=== PATIENT | female | born 1990 | race Caucasian/White ===

== ENCOUNTER 2024-03-07 06:55 | Inpatient (IN) | payer BC, SELFPAY ==
[2024-03-07] VITALS (43 sets, daily range): BP systolic 113–172; BP diastolic 55–99; PULSE 70–100; RESP 14–18; TEMP 36.1–37.2; O2SAT 86–100; BMI 45.3
[2024-03-07] MEDS: Lactated Ringers 1,000 ML 50 ML IV (07:25)
[2024-03-07] MEDS: LACTATED RINGERS 500 ML 999 ML IV (07:47)
[2024-03-07 07:50] LABS: Absolute Lymphocyte Count 3.24 X10^3/uL (0.83-4.51); Absolute Neutrophil Count 8.2 X10^3/uL (2.0-7.7); Basophil# 0.04 X10^3/uL; Basophil% 0.3 % (0-1); Eosinophil# 0.07 X10^3/uL; Eosinophils% 0.6 % (0-5); Hematocrit 39.2 % (37-47); Hemoglobin 12.6 g/dL (12.0-15.0); Lymphocyte # 3.24 X10^3/ul (0.83-4.51); Lymphocyte % 25.8 % (19-41); Mean Corp Hgb Conc 32.1 g/dL (32-36); Mean Corpuscular Volume 90.3 fL (81-99); Mean Platelet Vol. 9.6 fl (6.2-12.0); Monocyte# 0.86 X10^3/uL; Monocyte% 6.9 % (0-10); NRBC Flagged by Analyzer 0 % (0-5); Neutrophil # 8.23 X10^3/uL (2.7-7.7); Neutrophil % 65.5 % (47-70); Platelet Count 230 K/mm3 (150-450); RBC Distribution Width CV 13.6 % (11.6-14.6); Red Blood Count 4.34 M/mm3 (4.2-5.4); White Blood Count 12.6 K/mm3 (4.4-11.0)
--- NOTE | 2024-03-07 08:13 | PCM.HP.OB ---
HPI - General General Date of Admission: 03/07/24 HPI Narrative CHAU SHOCK, is a 33 F who presents for induction of labor at 39w2d for elective induction of labor. Maternal Data Information AVILA Calculator Estimated Delivery Date Method Current WG Current Estimate 03/12/24 Manual 39w 2d Final AVILA: 03/12/24 PFS PFS Medical History (Updated 03/07/24 @ 08:49 by Lucero Perez CNM) Gestational HTN depression Home Medications aspirin 81 mg capsule 81 mg PO DAILY HX of HTN 03/07/24 [History Last Taken 03/06/24] pren vit comb.1-iron cb-FA-DSS 90 mg-1 mg-50 mg tablet 1 tab PO DAILY 03/07/24 [History Last Taken 03/06/24] Allergy/AdvReac Type Severity Reaction Status Date / Time No Known Allergies Allergy Verified 03/07/24 07:25 Surgical History (Updated 03/07/24 @ 08:04 by Elizabet Villalobos) History of surgery Social History Smoking Status: Never smoker History Elective abortions Hx Para 1 Spontaneous abortions Hx # Term Pregnancies Ectopic pregnancies Hx # Pregnancies Multiple births # of living children NST FHR Rate Baby A Baseline: 140 Variability:: Moderate Accelerations:: 15 x 15 Decelerations:: None FHR Category:: Category I Uterine Activity:: None ROS Constitutional Constitutional: Reports systems reviewed and no addt'l complaints, except as documented; Denies headache(s) Eyes Eyes: Denies acute decrease in peripheral vision, blurry vision or change in vision ENT HEENT: Reports systems reviewed and no addt'l complaints, except as documented Cardiovascular Cardiovascular: Denies chest pain or dizziness Respiratory/Chest Respiratory/Chest: Denies cough, dyspnea, dyspnea on exertion, shortness of breath at rest or shortness of breath with exertion Gastrointestinal Gastrointestinal: Denies abdominal pain, diarrhea, nausea or vomiting Genitourinary Genitourinary: Denies abdominal discomfort Musculoskeletal Musculoskeletal: Denies limited range of motion Integumentary Integumentary: Reports systems reviewed and no addt'l complaints, except as documented Neurologic Neurologic: Reports systems reviewed and no addt'l complaints, except as documented Psychiatric Psychiatric: Reports systems reviewed and no addt'l complaints, except as documented Endocrine Endocrinology: Reports systems reviewed and no addt'l complaints, except as documented Hematologic/Lymphatic Hematologic/Lymphatic: Reports systems reviewed and no addt'l complaints, except as documented Allergic/Immunologic Allergic/Immunologic: Reports systems reviewed and no addt'l complaints, except as documented Vital Signs Vital Signs Vital Signs: 03/07/24 07:32 03/07/24 07:32 03/07/24 07:32 Temperature Temperature Source Temporal Pulse Rate 86 Respiratory Rate Blood Pressure 139/84 H BP Systolic 139 BP Diastolic 84 03/07/24 07:32 03/07/24 07:32 Temperature 98.4 F Temperature Source Pulse Rate Respiratory Rate 18 Blood Pressure BP Systolic BP Diastolic Weight Weight: 264 lb 4 oz Body Mass Index (BMI) 45.3 Physical Exam Const alert and oriented x3 General Appearance: cooperative Orientation / Consciousness: awake, oriented to person, oriented to place and oriented to time Exam Limitations: no limitations HEENT normocephalic Head and Scalp: normal to inspection, normocephalic and atraumatic Face and Sinus: normal facial exam Eyes General Eye: normal appearance of both eyes Neck full ROM Chest Chest: symmetrical chest wall rise Resp normal respiratory effort and normal air movement Auscultation: clear to auscultation bilaterally Cardio regular rate, regular rhythm, S1 normal heart sound, S2 normal heart sound, no murmurs, no rub, no gallops and no clicks GI normal to inspection, nondistended, normoactive bowel sounds and non-tender appearance of the vagina normal Bladder / Kidney Exam: no CVA tenderness Manual OB Exam: estimated gestational size appropriate, presentation cephalic, dilated 1cm, effaced 60, station -2 and other houser inserted into cervix without difficulty. 30ml NS instilled. Patient tolerated well. Back/Spine normal ROM Extremity normal to inspection and full ROM Skin no rashes or lesions noted Neuro oriented x3 and moves all extremities Sensorium / Orientation: awake, alert and oriented to person Motor Exam: clonus absent Deep Tendon Reflexes: Rt Patellar (L4): 2+ and Lt Patellar (L4): 2+ Labs Labs Labs: Blood Type Pending Antibody Screen Pending Hct 39.2 % (37-47) Hgb 12.6 g/dL (12.0-15.0) Syphilis Total Ab Pending HIV negative HBsAG negative HepC negative Rubella immune RPR negative O positive GBS negative GC/CT negative Assessment & Plan (1) Encounter for induction of labor: (2) Obesity affecting : (3) History of depression: (4) History of gestational hypertension: PLAN: Plan 1) Admit to labor and delivery 2) Routine labs 3) Epidural for pain management 4) Continuous EFM 5) Houser and Pitocin 6) collaborative physician and notified of patient status, above assessment and plan of care.
[2024-03-07] MEDS: Oxytocin 15 Units/NS 250ml 15 UNITS/250 ML IV.SOLN 2 UNITS IV (08:25)
[2024-03-07] MEDS: 0.9% Normal Saline Single 100 ML IV.SOLN. INTRA-UTER (08:45)
[2024-03-07 09:31] LABS: Syphilis Antibodies Non-reactive
[2024-03-07] MEDS: CHLORHEXIDINE GLUC 2% CLOTH 1 EACH TOWELETTE TOPICAL (10:31)
[2024-03-07] MEDS: fentaNYL-bupivacaine (epidural) 100 ML BAG EPIDURAL ×2 (11:07→15:39)
--- NOTE | 2024-03-07 11:46 | PN.OBGYN_ITS ---
Subjective Subjective Resting in bed comfortable with epidural. Objective Data Objective Data Vital Signs: Vital Signs Temp Pulse Resp BP Pulse Ox 98.8 F 84 16 128/77 H 100 03/07/24 11:21 03/07/24 11:44 03/07/24 11:24 03/07/24 11:44 03/07/24 11:41 Weight: 264 lb 4 oz Body Mass Index (BMI) 45.3 Intake & Output: Intake and Output for Last 24 Hours 03/05/24 03/06/24 03/07/24 23:59 23:59 23:59 Intake Total 1161.25 / 1161.25 Balance 1161.25 / 1161.25 Lab / Micro Data 03/07/24 07:25 Labs: Laboratory Results - last 24 hr 03/07/24 07:25: WBC 12.6 H, RBC 4.34, Hgb 12.6, Hct 39.2, MCV 90.3, MCH 29.0, MCHC 32.1, RDW Std Deviation 45.0 H, RDW Coeff of Avis 13.6, Plt Count 230, MPV 9.6, Immature Gran % (Auto) 0.900, Neut % (Auto) 65.5, Lymph % (Auto) 25.8, Patrick % (Auto) 6.9, Eos % (Auto) 0.6, Baso % (Auto) 0.3, Absolute Neuts (auto) 8.2 H, Absolute Lymphs (auto) 3.24, Nucleated RBC % 0, Syphilis Total Ab Non-reactive, Blood Type O POSITIVE, Antibody Screen NEGATIVE Physical Exam Manual OB Exam: presentation cephalic, dilated 4cm, effaced 70, station -2 and other AROM clear fluid. IUPC and FSE placed NST FHR Rate Baby A Baseline: 145 Variability:: Moderate Accelerations:: 15 x 15 Decelerations:: None FHR Category:: Category I Uterine Activity:: Irregular Assessment & Plan (1) History of gestational hypertension: (2) Obesity affecting : (3) Encounter for induction of labor: PLAN: Plan 1) Category 1 FHT 2) IUPC and FSE due to difficulty tracing contractions and FHT. 3) AROM clear fluid 4) Epidural for pain mangement 5) Continue pitocin per protocol, active management 6) collaborative physician and notified of patient status, above assessment and plan.
[2024-03-07] MEDS: Lactated Ringers 1,000 ML 200 ML IV (12:55)
--- NOTE | 2024-03-07 16:39 | EX.PCM.OBRPT ---
Maternal Data Information AVILA Calculator Estimated Delivery Date Method Current WG Current Estimate 03/12/24 Manual 39w 2d Vaginal Delivery Maternal Presentation Maternal Presentation: Elective Induction Operative Information Date of Procedure: 03/07/24 Pre-Operative Diagnosis: Induction of labor Post-Operative Diagnosis: , first degree perineal laceration Surgery / Procedure Performed: Spontaneous Vaginal Delivery Type of Anesthesia: Epidural Estimated Blood Loss: 300 ml Time of Delivery: 16:24 Findings Description of Procedure: Progressed to complete with urge to push. Epidural for pain management. of viable female over 1st degree perineal laceration. APGARS 8,9 respectively. head delivered with body immediately forthcoming. Placed on maternal abdomen, strong cry. Mouth and nares suctioned for secretions. Pitocin started for active 3rd stage management. Cord doubly clamped and cut by FOB after pulsations ceased, delayed cord clamping. Placenta delivered intact via carroll, 3 vessel cord intact. Perineum inspected and revealed 1st degree perineal laceration. Repaired with 3.0 vicryl rapide and epidural. Fundus firm and hemostasis achieved. EBL 300ml. Mom and baby stable, planning to breastfeed. Family bonding well. notified of delivery. Presentation: Vertex and DEV Amniotic Membrane Rupture Type: Artificial Amniotic Fluid Description: Clear Placental Delivery Description: Expressed Placenta Disposition: [facility] Cord Vessel Description: 3 Vessels Cord Entanglement: Around neck x 1, loose Nuchal Cord Compression: Without compression Infant A Gender: Female (1 minute): 8 (5 minute): 9 Delayed Cord Clamping: Yes Post Vaginal Delivery Medications Given After Delivery: IV Pitocin and IM Pitocin Episiotomy Description: None Laceration: Perineal Extension/lac and 1st degree Complication Complications: None
[2024-03-07] MEDS: Oxytocin 15 Units/NS 250ml 15 UNITS/250 ML IV.SOLN 83 UNITS IV (17:14)
[2024-03-07] MEDS: Ibuprofen 600 MG Tablet PO ×2 (17:54→23:43)
[2024-03-08] VITALS (9 sets, daily range): BP systolic 107–136; BP diastolic 57–79; PULSE 74–88; RESP 16; TEMP 36.7–36.8; O2SAT 97–98
[2024-03-08] MEDS: 0.9% Saline Lock 10 ML Syringe IV (05:43)
[2024-03-08] MEDS: Ibuprofen 600 MG Tablet PO ×2 (06:37→13:11)
[2024-03-08] MEDS: Acetaminophen 500 MG Tablet 1000 MG PO ×2 (09:25→15:28)
[2024-03-08] MEDS: Senna/Docusate Sodium 1 Tablet PO (13:18)
--- NOTE | 2024-03-08 14:23 | CASEMGMT ---
Social Work Assessment Labor and Delivery Unit Patient Address: [address] [place] [address] [place] [address] Phone number: [phone] Date of Referral: 03/07/24 Time of Referral:? 1810 Referred By: Lucero Perez Date of Intervention: ??03/08/24 Time of Intervention:? 0 Reason for Referral:? Hx PPD with first baby Sw completed chart review and acknowledges social work consult due to maternal mental health history positive for depression. Sw presented to bedside and introduced self to mother of baby (MOB- Shannan) and father of baby (FOB- Mike). Sw explained sw role during hospitalization and completed psychosocial assessment. MOB also completed [place] Depression Scale. History obtained from: medical records, MOB and FOB Household composition: Currently residing in the family home is ALEX, CATIE, their 1.5 year old daughter, Delores and now baby when ready for discharge. Parenroly deny any issues or concerns with current housing. Patient's parent/guardian status:? ?ALEX states that she and CATIE met online and have been together for 6 years. No concerns regarding domestic violence or intimate partner violence at this time. Medical History: ?ALEX is 33 year old female who is para 2, 1- now 2 following labor and delivery of . ALEX received routine care during with [facility]. ALEX presented to hospital on 03/07/24 for induction of labor. ALEX delivered baby via spontaneous vaginal delivery at 39 weeks gestation. Baby girl, named Jcaques Conde, was born weighing 6lb 2oz and her apgars were 8 and 9 at one and five minutes of life, respectfully. ALEX is breast feeding and states that it is going okay. ALEX states that baby will be followed by Dr. Salcedo for pediatrics. Educational Status:?Both parents graduated from high school. MOB obtained an associates degree and a bachelors degree. No concerns with reading, learning or comprehension. Financial Status: CATIE is gainfully employed outside of the home at [employer]. FOB states that he is able to take two weeks off of work now that baby has been born. MOB is a stay at home mom. Infant Supplies:?Parents have obtained all necessary baby supplies,? including: car seat, safe sleep space, clothes, diapers and wipes. Childcare/Caregiver(s):? MOB states that she will be the primary caregiver to baby along with FOB when he is not at work. MOB states that paternal grandparents also help watch kids when she has errands to run. Transportation:?Both parents have their drivers license and reliable means of transportation. No barriers at this time. ? Programs/Agencies Involved: ???Parents are not connected to any beneficial community resources at this time. ALEX states that she did get connected to counseling supports at [facility] during her last period. Children Services/Legal Issues:???No history of Children Services involvement. No issues or concerns warranting referral to be made at this time. Behavioral Health Issues: ??Mental Health History:?CATIE denies mental health history. ALEX states that she has not been diagnosed with anxiety or depression, but did struggle with her mental health during her period after her first daughter was born. ALEX states that during that time she was overwhelmed and anxious, and everyone around her had opinions on how she should be doing things as a first time mom. ALEX stated that she started counseling and that helped her navigate how to be a first time mom. ALEX states that the counseling she received was really helpful and she did not need any medication. ?? Substance Use History: ALEX denies substance use prior to and during . ?? Family History:??Parents deny substance use/ addiction issues or significant mental health diagnoses such as bipolar or schizophrenia. ??? Drug Screens: ?No drug screens observed in chart review. ? Family/Social Stressors:?Parents deny issues, concerns or stressors at this time. Support Systems: Parents report that paternal grandparents live close and are their biggest supports. Depression/Shaken Baby/Safe Sleeping:? Paige educated parents on signs and symptoms of baby blues and depression and anxiety. ALEX completed [place] Depression Scale and her score was a 4. Sw provided education and support. FOB states that he would be able to recognize if MOB were struggling with her mental health and would know how to help and support her. Paige encouraged ALEX to get reconnected with [facility] for outpatient mental health services and supports if she feels like she is struggling again. MOB expressed agreement. Sw educated parents on shaken baby prevention and ABCs of safe sleep. Parents expressed understanding. ASSESSMENT:? MOB and baby admitted following labor and delivery of . MOB with mental health history and depression following the delivery of her last baby. MOB states that she feels more prepared this time and knows what resources to reach out to for support. MOB states that she has obtained everything that she needs for baby and has natural supports in place. FOB was observed to provide loving and appropriate hands on care of . Parents made and maintained eye contact with sw throughout completion of psychosocial assessment. Parents were appreciative of support and information provided. Sw provided parents with literature of signs and symptoms of baby blues/ depression/ anxiety to be on the lookout for, shaken baby prevention, ABCS of safe sleep, Help Me Grow and [facility] resource list. PLAN:? MOB and baby to be discharged when medically ready. ?No other services requested or indicated. Karissa Flannery, J2EE PROGRAMMER, DEALERSHIP MANAGER
--- NOTE | 2024-03-08 14:48 | PCM.PN.OB ---
Subjective Subjective Denies complaints Objective Data Objective Data Vital Signs: Vital Signs Temp Pulse Resp BP Pulse Ox O2 Del Method 98.1 F 74 16 115/66 98 Room Air 03/08/24 13:22 03/08/24 13:22 03/08/24 13:22 03/08/24 13:22 03/08/24 13:22 03/08/24 13:22 Oxygen Delivery Method Room Air Weight: 264 lb 4 oz Body Mass Index (BMI) 45.3 Intake & Output: Intake and Output for Last 24 Hours 03/06/24 03/07/24 03/08/24 23:59 23:59 23:59 Intake Total 2696.67 / 2696.67 Output Total 1300 / 1300 800 / 800 Balance 1396.67 / 1396.67 -800 / -800 Lab / Micro Data 03/07/24 07:25 Physical Exam Const alert, oriented x3 and no apparent distress HEENT normocephalic GI soft to palpation, non-tender and non-distended GI Narrative: fundus firm, mid & below umbilicus Extremity normal to inspection and no calf tenderness Assessment & Plan (1) Encounter for induction of labor: COMMENT: PPD#1 PLAN: Plan D/c home per patient request
--- NOTE | 2024-03-08 14:49 | PCM.DC.SUM ---
Providers Date of Admission: 03/07/24 Primary Care Physician: Dr. Catrina Harmon DO Reason For Visit: VAGINAL DELIVERY Diagnosis Discharge Diagnosis (1) Encounter for induction of labor: Status: Acute Code(s): Z34.90 - Encounter for supervision of normal , unspecified, unspecified trimester Plan D/c home per patient request Medications at Discharge Home Medications pren vit comb.1-iron cb-FA-DSS 90 mg-1 mg-50 mg tablet 1 tab PO DAILY 03/07/24 acetaminophen 500 mg tablet 1,000 mg (2 x 500 mg) PO Q6H PRN PRN Pain 1-10 Or Fever #0 tabs 03/08/24 ibuprofen 600 mg tablet 600 mg PO Q6H PRN PRN Pain Score 1-10 #0 tabs 03/08/24 Hospital Course Summary of Care Provided Minutes Spent on Discharge: 15 Weight / BMI Weight Weight: 264 lb 4 oz Body Mass Index (BMI) 45.3 ABG / Lab / Microbiology Data 03/07/24 07:25 D/C Instructions Discharge Diet: No restrictions May resume sexual activity in: 6 weeks Weight Bearing Status: Weight bearing as tolerated Call your doctor if you observe: Fever of 101 or Higher, Coldness, Increased Pain, Change in Color, Inability to urinate, Inability to have a bowel movement, Using more than 1 pad per hour, Shortness of breath, Dizziness, Fainting spells, Chest pain, Increased palpitations (irregular heartbeat), Calf discomfort and Uncontrolled pain Please Follow Up With: Lucero Perez CNM When: Follow up in 2 and 6 weeks for visits. Meaningful Use Info Meaningful Use Diagnoses (Choose all that apply): None applicable Discharge Plan Admission Admit Date/Time: 03/07/24 06:55 Primary Reason for Your Visit: Vaginal delivery Attending Provider: Lucero Perez Primary Care Provider: Catrina Harmon Discharge Orders/Prescriptions Prescriptions: New acetaminophen 500 mg Tablet 1,000 mg PO Q6H PRN PRN (Reason: Pain 1-10 Or Fever) Qty: 0 0RF ibuprofen 600 mg Tablet 600 mg PO Q6H PRN PRN (Reason: Pain Score 1-10) Qty: 0 0RF Continued pren vit comb.1-iron cb-FA-DSS 90-1-50 mg tablet 1 tab PO DAILY Discontinued aspirin 81 mg capsule 81 mg PO DAILY Rx Instructions: 2 daily Referrals / Follow Up: Catrina Harmon DO [Primary Care Provider] - Disposition Disposition (needs filled in before D/C Order can be placed): Home, Self Care
== END 2024-03-08 17:35 | disposition home or self-care (01) | DRG 807 ==
PROVIDERS: Obstetrics & Gynecology; Admitting Provider Advanced Practice Midwife; PCP Family Medicine; Visit Provider Advanced Practice Midwife
DX: O99.214 Obesity complicating childbirth (principal); Z37.0 Single live birth; O69.81X0 Labor and delivery complicated by cord around neck, without compression, not applicable or unspecified; O70.0 First degree perineal laceration during delivery; Z79.82 Long term (current) use of aspirin; Z3A.39 39 weeks gestation of pregnancy
CPT/HCPCS: 59025; 59050; 85025; 86780; 86850; 86900; 86901; 99221; J7120; A4216; G0378